=== PATIENT | female | born 1990 | race Two or more races ===

== ENCOUNTER 2020-01-20 10:19 | Outpatient (CLI) | payer OTHER ==
[~2020-01-20] VITALS: Ht 157.5 cm; Wt 65.8 kg
== END 2020-01-20 11:17 | disposition home or self-care (01) ==
LOC: OFIC 805 10:19
PROVIDERS: ATTEND Otolaryngology Otology & Neurotology
DX: H92.02 Otalgia, left ear (principal); H61.23 Impacted cerumen, bilateral; H90.3 Sensorineural hearing loss, bilateral